=== PATIENT | male | born 1965 | race Two or more races ===

== ENCOUNTER 2024-11-17 19:40 | Emergency (ER) | payer BC ==
[2024-11-17] MEDS: Oxymetazoline 0.05% Nasal Spray 30 ML Bottle NAS ONE (20:40)
== END 2024-11-17 21:12 | disposition home or self-care (01) ==
LOC: JD.ED 19:40
DX: R04.0 Epistaxis (principal); I10 Essential (primary) hypertension; F17.210 Nicotine dependence, cigarettes, uncomplicated
CPT/HCPCS: 99283; A9270